=== PATIENT | male | born 1955 | race Caucasian/White ===

== ENCOUNTER 2025-03-10 09:29 | Outpatient (AMB) | payer MEDICARE, SELFPAY ==
--- NOTE | 2025-03-10 09:32 | A.OFFVIS_ITS ---
Vital Signs 03/10/25 09:34 Height 6 ft 2 in Weight 224 lb BMI 28.8 BP 148/86 H Blood Pressure Location Rt brachial Position Sitting Pulse 46 L Pulse Source Pulse Oximeter Pulse Oximetry (%) 98 Oxygen Delivery Method Room Air Intake Visit Reasons: sleep apnea Allergies No Known Allergies Allergy (Verified 03/10/25 09:37) HPI HPI sleep apnea: Details: Robert is a pleasant 69 year old male, never smoker, with underlying hypertension and obstructive sleep apnea. He was referred by PCP for management of obstructive sleep apnea. He previously underwent testing in 2018 which revealed [id number] obstructive sleep apnea however could not tolerate CPAP therapy. He continues to report daytime fatigue and is interested in attempting CPAP therapy again. He also notes the last 2-3 weeks intermittent episodes of dyspnea, unknown trigger and does not have any symptoms with activity. He denies cough, wheezing or chest tightness. He is unsure if this is related to underlying anxiety or cardiac concerns. He does have an upcoming appointment with cardiology next month, with [facility]. He reports question of asthma secondary to viral infections many years ago. He denies history of recurrent respiratory infections. He endorses mild seasonal allergies. He denies any occupational exposures. He reports children and sister with allergies otherwise denies any pertinent family history. [facility] Social History (Updated 03/10/25 @ 09:39 by Anny Sousa [facility]) Patient Tobacco Use Status: Never used Tobacco Review of Systems Const Denies chills, Denies excessive sweating, Denies fever(s), Denies headache(s) and Denies night sweats Eyes Denies dry eyes, Denies irritation and Denies itchy eyes ENT Reports Normal hearing present, Denies headache(s), Denies nasal congestion, Denies nasal discharge, Denies post nasal drip and Denies sore throat Card Denies chest pain, Denies chest pain at rest, Denies chest pain with activity, Denies claudication, Denies leg edema, Denies dyspnea, Denies dyspnea on exertion, Denies orthopnea and Denies paroxysmal nocturnal dyspnea Resp Denies chest congestion, Denies cough, Denies excessive phlegm production, Denies pain on inspiration, Denies pain with cough, Denies dyspnea, Denies dyspnea on exertion, Denies stridor and Denies wheezing Musc Denies myalgias Neuro Reports Normal hearing present and Denies headache(s) Endo Denies excessive sweating Mitul/Lymph Denies lymphadenopathy Aller/Immun Denies itchy eyes, Denies seasonal rhinorrhea and Denies wheezing Physical Exam Vital Signs: Last Vital Signs Pulse 46 L 03/10/25 09:34 BP 148/86 H 03/10/25 09:34 Pulse Ox 98 03/10/25 09:34 Oxygen Delivery Method Room Air 03/10/25 09:34 BMI result Body Mass Index 28.8 Const General: cooperative, healthy appearing, comfortable, no acute distress, well developed and alert Orientation/consciousness: patient oriented x3 Limitations: no limitations HEENT Head: Yes normal to inspection, Yes normocephalic and Yes atraumatic Ears: hearing grossly normal bilaterally and external ears normal Eyes General: appearance normal, both eyes and all related structures Eyelids: Yes eyelids normal Sclerae: sclerae normal EOM: EOMs intact bilaterally Neck Neck: Yes normal visual inspection and Yes no lymphadenopathy Lymphatic: no lymphadenopathy noted Chest Chest palpation & inspection: normal inspection of the chest Resp Effort & Inspection: normal respiratory effort, able to speak in complete sentences, no audible wheezes, no cough, no stridor, not tachypneic, no tripod positioning and no use of accessory muscles Auscultation: clear to auscultation bilaterally Cardio Jugular venous distension: no JVD Rate: regular rate Rhythm: regular rhythm Skin Other: warm, dry General skin exam: no rashes or lesions noted Neuro General: patient oriented x3 Cranial nerves: Yes Normal hearing present Cognition (Neuro): normal cognition Gait exam (Neuro): Normal gait present Extrem General: Yes normal to inspection, Yes capillary refill normal, Yes no clubbing, cyanosis or edema and Yes no pedal edema Psych Appearance: grossly normal and well kempt Speech and movement: Normal speech and movement present and Clear speech present Affect: normal affect Attitude: cooperative Thought process: Normal thought process present Thought content: Normal thought content present Insight: Good insight present (Psych) Judgement: Good judgement present (Psych) Assessment & Plan Assessment & Plan (1) Daytime somnolence: Code(s): R40.0 - Somnolence Category: Medical (2) Obstructive sleep apnea: Code(s): G47.33 - Obstructive sleep apnea (adult) (pediatric) Category: Medical (3) Dyspnea: Code(s): R06.00 - Dyspnea, unspecified Category: Medical Plan Robert presents for pulmonary evaluation for management of known obstructive sleep apnea and recent onset of dyspnea. Will send a home sleep study to evaluate severity of obstructive sleep apnea as prior sleep study was from 2018. We discussed sending for PFT to assess for any obstructive or restrictive defect contributing to dyspnea, however patient would like to hold off until cardiac evaluation next month. All questions were answered and patient is in agreement of plan. Will follow-up to review results or sooner if needed. Orders: Orders RT home sleep study Today R40.0 - Somnolence Coding Level of Care Code New Pt Level 3 (94022) Diagnoses Daytime somnolence R40.0 Obstructive sleep apnea G47.33 Dyspnea R06.00
[2025-03-10 09:34] VITALS: BP 148/86; PULSE 46; O2SAT 98; BMI 28.8
== END 2025-03-10 10:15 | disposition home or self-care (01) ==
LOC: HO.HPSW 09:29
PROVIDERS: PCP Internal Medicine; Visit Provider Nurse Practitioner Family
DX: R40.0 Somnolence (principal); G47.33 Obstructive sleep apnea (adult) (pediatric); R06.00 Dyspnea, unspecified
CPT/HCPCS: 99203

== ENCOUNTER → 2025-03-10 09:29 | Outpatient (BNVA) | payer MEDICARE, SELFPAY | PROVIDERS: PCP Internal Medicine; Visit Provider Nurse Practitioner Family | DX: G47.33 Obstructive sleep apnea (adult) (pediatric) (principal); R40.0 Somnolence; R06.00 Dyspnea, unspecified | CPT/HCPCS: 99202 ==